=== PATIENT | female | born 1990 | race Two or more races ===

== ENCOUNTER 2018-03-10 08:15 | Emergency (ER) | payer MEDICAID, OTHER ==
[~2018-03-10] VITALS: Ht 167.6 cm; Wt 63.5 kg
[2018-03-10 08:31] VITALS: BP 112/68
[2018-03-10] MEDS ORDERED: LIDOCAINE 1% (LOCAL ANESTH.) PF 5ml SDV ID ONE (10:00)
[2018-03-10] MEDS ORDERED: BACITRACIN TOP OINT 1 UD PKG TOP ONE (10:00)
== END 2018-03-10 11:01 | disposition home or self-care (01) ==
LOC: ER 08:15
DX: S61.214A Laceration without foreign body of right ring finger without damage to nail, initial encounter (principal); W26.9XXA Contact with unspecified sharp object(s), initial encounter; Y93.89 Activity, other specified; Y99.8 Other external cause status; Y92.89 Other specified places as the place of occurrence of the external cause
CPT/HCPCS: 12001